=== PATIENT | male | born 1950 | race Caucasian/White ===

== ENCOUNTER 2022-01-11 14:25 | Emergency (ER) | payer MEDICARE, BC, SELFPAY ==
[2022-01-11 14:26] VITALS: BP 127/78; PULSE 114; RESP 44; TEMP 36.7; O2SAT 85; BMI 26.6
--- NOTE | 2022-01-11 14:29 | ECG_ITS ---
APPROVED REPORT Exam: Resting ECG HR:111 bpm ECG Measurements Heart Rate [address] 149 P 73 QRSd 92 QRS 72 QT 294 T 57 QTc 359 Conclusion SINUS TACHYCARDIA ABNORMAL RHYTHM ECG UNCONFIRMED REPORT Electronically signed by : Dagoberto Nesbitt MD 01/12/2022 22:18:04
--- NOTE | 2022-01-11 14:29 | XR_ITS ---
FINAL REPORT CLINICAL HISTORY: cough FINDINGS: A single portable view of the chest was obtained. The heart size and pulmonary vascularity are within normal limits. The mediastinum is within normal limits. There is left lung base opacity consistent with pneumonia. The bony thorax is intact. IMPRESSION: Findings consistent with left lung base pneumonia. Reviewed, Interpreted and Dictated by Andres Veronica III, MD Transcribed by Iza Abel Authenticated and [facility]
--- NOTE | 2022-01-11 14:30 | HMH.EDGENADL ---
ED Disposition Clinical Impression: COPD exacerbation, Tobacco use disorder Disposition: Left Against Medical Advice Condition on Discharge: Serious Prescriptions: Albuterol Sulfate [Albuterol Sulfate Hfa] 8.5 gm IH BID #1 each Transmission Status: Pending to [facility] predniSONE [Deltasone 20mg tablet] 40 mg PO DAILY 30 Days #60 tab Transmission Status: Pending to [facility] levoFLOXacin [Levofloxacin 750MG Tablet*] 750 mg PO DAILY #5 tab Transmission Status: Pending to [facility] Time of Disposition: 15:16 - Critical Care Critical Care Time: No Attestation: On , the high probability of a clinically significant, sudden or life threatening deterioration of the following system(s) required my full and direct attention, intervention and personal management. The time I documented below is in addition to time spent performing reported procedures but includes the following listed in this critical care notation. Medical Decision Making - Medical Records Medical records reviewed: Yes: I reviewed the patient's medical records. - Pritesh Inquiry Pt receiving controlled substance: No Vital Signs: 01/11/22 14:26 Temperature 98.1 F Temperature Source Oral Pulse Rate [Right Radial] 114 H Respiratory Rate 44 H Blood Pressure [Right Arm] 127/78 Blood Pressure Mean [Right Arm] 94 Blood Pressure Source [Right Arm] Automatic Cuff Blood Pressure Position [Right Arm] Sitting 02 Sat by Pulse Oximetry 85 L Oxygen Delivery Method Room Air - Lab Data Lab Results 01/11/22 14:35: WBC 19.8 H, RBC 4.39 L, Hgb 14.0 L, Hct 39.0 L, MCV 88.9, MCH 32.0 H, MCHC 36.0 H, RDW 13.0, Plt Count 262, MPV 8.1, Neut % (Auto) 86.4 H, Lymph % (Auto) 8.3 L, [place] % (Auto) 4.2, Eos % (Auto) 0.7, Baso % (Auto) 0.5, Neut # (Auto) 17.1 H, Lymph # (Auto) 1.7, [place] # (Auto) 0.8, Eos # (Auto) 0.1, Baso # (Auto) 0.1 Result diagrams: 01/11/22 14:35 Orders (Tests/Meds): ED MEDICATIONS Discontinued Medications Generic Name Dose Route Start Last Admin Trade Name Freq PRN Reason Stop Dose Admin Albuterol/Ipratropium 3 ml 01/11/22 14:29 Ipratropium/Albuterol 3 Ml Neb IH 01/11/22 14:30 ONCE ONE Methylprednisolone Sodium Succinate 125 mg 01/11/22 14:29 Methylprednisolone Sod Succ 125mg Vial IV 01/11/22 14:30 ONCE ONE ORDERS Category Date Time Status XR chest portable Stat Exams 01/11/22 14:29 Taken Complete Blood Count Auto Diff Stat Lab 01/11/22 14:35 Results Comprehensive Metabolic Panel Stat Lab 01/11/22 14:35 Received Lactic Acid Stat Lab 01/11/22 14:35 Received Procalcitonin Stat Lab 01/11/22 14:35 Received Rapid PCR Covid and Flu A/B Stat Lab 01/11/22 14:29 Ordered Troponin I Q3H Lab 01/11/22 17:30 Ordered Troponin I Q3H Lab 01/11/22 20:30 Ordered Troponin I Stat Lab 01/11/22 14:35 Received Blood Culture Stat Micro 01/11/22 14:35 Received Venous Blood Gas Stat RT 01/11/22 14:29 Ordered ECG Request by /[place] Stat Y 01/11/22 14:29 Ordered - ECG Data Tracing #1 Sinus tachycardia with ventricular rate of 111 bpm. QRS 92, QTc 359. No ST segment elevation. No arrhythmia. Medical Decision Narrative: In summary this is a 71-year-old male with history of tobacco use disorder and COPD presenting to the emergency department with cough, wheezing, difficulty breathing. Patient appears in moderate distress on arrival, significantly elevated respiratory rate. Oxygen saturation was in the mid 80s on room air. Placed on 3 L by nasal cannula. Pain CBC, CMP, VBG, chest x-ray, EKG, troponin profile. Patient given DuoNeb and 125 Solu-Medrol. Shortly after my evaluation, patient said he no longer wanted to be in the emergency department. He told nursing staff he was ready to leave. He wanted his IV out. [place] his breathing was much better. So far, we only have preliminary labs showing a leukocytosis of 19,000. Chest x-ray has been completed, no pneumothorax or
[2022-01-11 14:49] LABS: Basophils # 0.1 K/mm3 (0-0.2); Basophils % 0.5 % (0.1-2.0); Eosinophils # 0.1 K/mm3 (0.0-0.4); Eosinophils % 0.7 % (0.1-12.0); Lymphocytes # 1.7 K/mm3 (0.7-4.5); Lymphocytes % 8.3 % (10-50); Mean Corpuscular Volume 88.9 fl (80-94); Mean Platelet Volume 8.1 fl (7.4-10.4); Monocytes # 0.8 K/mm3 (0.1-1.0); Monocytes % 4.2 % (1.7-9.3); Neutrophils # 17.1 K/mm3 (1.8-7.8); Neutrophils % 86.4 % (37.0-80.0); Platelet Count 262 K/mm3 (142-424); Red Blood Count 4.39 M/mm3 (4.60-6.20); White Blood Count 19.8 K/mm3 (4.8-10.8)
[2022-01-11 14:51] LABS: MANUAL DIFFERENTIAL MANUAL DIFFERENTIAL (MANUAL DIFF)
[2022-01-11 15:03] LABS: Chloride 96 mmol/L (98-107); Potassium 3.8 mmoL/L (3.5-5.1); Sodium 131 mmol/L (136-145)
[2022-01-11 15:06] LABS: Alanine Aminotransferase 32 U/L (12-78); Albumin Level 3.8 g/dl (3.5-5.0); Alkaline Phosphatase 69 U/L (38-126); Anion Gap 10.8 mEq/L (5-15); Aspartate Amino Transferase 42 U/L (17-59); Bilirubin,Total 1.1 mg/dl (0.2-1.3); Blood Urea Nitrogen 64 mg/dl (9-20); Calcium 8.6 mg/dl (8.4-10.2); Carbon Dioxide 28 mmol/L (22.0-30.0); Creatinine Clearance Estimated 68 mL/min (50-200); Estimated Glomerular Filt Rate 60 ml/min (>60); GFR (African American) 72 ML/MIN (>60); Globulin 3.7 g/dL (1.3-3.2); Glucose 155 mg/dl (74-100); Total Protein,Serum 7.5 g/dl (6.3-8.2)
[2022-01-11 15:07] LABS: Lactic Acid 1.6 mmol/L (0.7-2.1)
[2022-01-11 15:11] LABS: Lymphocytes % 4 % (10-50); Monocytes % 3 % (2-9); Neutrophils % 93 % (42-76); Total Cells Counted 100
[2022-01-11 15:18] LABS: Platelet Estimate Normal; Spherocytes 4+
[2022-01-11 15:19] LABS: Troponin I < 0.01 ng/ml (0.00-0.034)
[2022-01-11 15:35] VITALS: BP 0/0; PULSE 0; RESP 0; TEMP -17.7; TEMP 0; O2SAT 0
[2022-01-11 15:47] LABS: Procalcitonin 0.792 ng/mL (0.0-2.0)
== END 2022-01-11 15:35 | disposition left against medical advice (07) ==
PROVIDERS: Emergency Provider Emergency Medicine
DX: Z53.29 Procedure and treatment not carried out because of patient's decision for other reasons (principal); J44.1 Chronic obstructive pulmonary disease with (acute) exacerbation; Z72.0 Tobacco use; Z88.0 Allergy status to penicillin
CPT/HCPCS: 71045; 80053; 83605; 84145; 84484; 85007; 85025; 87040; 93005; 99283

== ENCOUNTER 2022-10-08 12:09 | Emergency (ER) | payer MEDICARE, BC, SELFPAY ==
[2022-10-08 12:15] VITALS: BP 135/76; PULSE 92; RESP 16; O2SAT 97
--- NOTE | 2022-10-08 12:16 | HMH.EDGENADL ---
Discharge Plan Disposition Patient Disposition: Home, Self-Care Prescriptions Prescriptions: New doxycycline hyclate 100 mg capsule 100 mg PO BID 7 Days Qty: 14 0RF No Action prednisone 20 MG tablet 40 mg PO DAILY 30 Days Qty: 60 0RF levofloxacin 750 MG tablet 750 mg PO DAILY Qty: 5 0RF albuterol sulfate 8.5 GM HFA aerosol inhaler 8.5 gm IH BID Qty: 1 0RF Referrals Follow up/Referrals: Provider,Referral, MD [Primary Care Provider] - See instructions Activity Restrictions/Add. Instructions Additional Instructions/Restrictions: Please follow-up with urology if you continue to have difficulty retracting your foreskin. Also return to the emergency department with any inability to urinate. Please return to the emergency department with any fevers chills or systemic signs of illness. Please have your partners tested and treated for STIs as well. Clinical Impressions Clinical Impression: Urethritis Instructions Patient Instructions: DI for Urinary Tract Infection (UTI), DI for Urinary Tract Infection in Children Discharge ED Provider: Brigido Linares General Adult HPI General Chief complaint: Urogenital-Male Stated complaint: Genital irritation Time Seen by Provider: 10/08/22 12:16 History of Present Illness HPI narrative: Patient is a 72-year-old male today presenting with concerns for the clap states that he has had significant inflammation and erythema and purulent drainage from his penis since he had sex with a woman that he notices multiple sexual partners a month and a half ago. The timing of this is very similar. He states that he had chlamydia when he was a teenager but has not had it since that time. Denies any lesions to his penis is able to urinate normally. Denies any pain with defecation. Denies any fevers chills or other systemic symptoms of illness. Related Data Previous Rx's Medication Instructions Recorded albuterol sulfate 90 mcg/actuation 8.5 gm inhalation BID #1 ea 01/11/22 aerosol inhaler levofloxacin 750 mg tablet 750 mg PO DAILY COPD #5 tabs 01/11/22 prednisone 20 mg tablet 40 mg PO DAILY 30 days #60 tabs 01/11/22 doxycycline hyclate 100 mg capsule 100 mg PO BID 7 days #14 caps 10/08/22 Allergies Allergy/AdvReac Type Severity Reaction Status Date / Time Penicillins Allergy Verified 01/11/22 14:58 [facility] Disclaimer: The information contained in this section may have been updated after the patient was seen, as this information can be updated by other users. Social History Smoking Status: Current every day smoker alcohol intake: current current occupational status: other Travel in the last 8 weeks: None ROS Obtained: Yes All systems reviewed & no additional complaints except as documented Physical Exam General General appearance: alert and in no apparent distress Respiratory Respiratory exam: Present normal lung sounds bilaterally; Absent respiratory distress Cardiovascular Cardiovascular exam: Present regular rate; Absent tachycardia exam: Present other (Foreskin is not retracted there is some erythema and some purulent drainage from tip of his penis he is unable to fully retract his foreskin but is able to urinate) Neurological Exam Neurological exam: Present alert and oriented X3 Medical Decision Making Pritesh Inquiry Pt receiving controlled substance: No Pritesh was queried for this patient: No Vital Signs: 10/08/22 12:18 10/08/22 12:15 Temperature 97 F L Temperature Source Oral Pulse Rate 92 H Pulse Rate [Left] 97 H Respiratory Rate 16 16 Blood Pressure 135/76 Blood Pressure [Left Arm] 135/76 Blood Pressure Mean 100 Blood Pressure Mean [Left Arm] 95 02 Sat by Pulse Oximetry 96 97 Oxygen Delivery Method Room Air Room Air Lab Data Lab Results 10/08/22 12:25: Urine Color Dk yellow, Urine Appearance Clear, Urine pH 5.5, Ur Specific [place] >= 1.030, Urine Protein 1+, Urine Glucose (UA) Trace,
[2022-10-08 12:18] VITALS: BP 135/76; PULSE 97; RESP 16; TEMP 36.1; O2SAT 96; BMI 29.0
[2022-10-08 12:36] LABS: Microscopic, Urine URINE MICROSCOPIC (MICROSCOPIC)
[2022-10-08 12:36] LABS: POC Glucose,Bedside 94 (70-110)
--- NOTE | 2022-10-08 12:36 | PC.NURSE ---
Sam rounded on patient
[2022-10-08 12:39] LABS: Appearance,Urine CLEAR (Clear); Blood, Urine TRACE-I (Negative); Color,Urine DK YELLOW (Yellow); Glucose,Urine (UA) TRACE (Negative); Ketones,Urine Negative (Negative); Leukocyte Esterase,Urine TRACE (Negative); Nitrate,Urine POSITIVE (Negative); PH,Urine 5.5 (5.0-8.5); Protein,Urine 1+ (Negative); Specific Gravity, Urine >= 1.030 (1.005-1.030)
[2022-10-08 12:49] LABS: Bilirubin,Urine 2+ (Negative)
[2022-10-08 13:11] LABS: Bacteria,Urine 1+ /lpf; RBC,Urine Occasional #/hpf (0-3)
[2022-10-08 13:30] VITALS: BP 135/76; PULSE 97; RESP 16; TEMP 36.1; O2SAT 96
[2022-10-11 20:09] LABS: Neisseria gonorrhoeae, NAA Negative (Negative)
== END 2022-10-08 13:32 | disposition home or self-care (01) ==
PROVIDERS: Emergency Provider Student in an Organized Health Care Education/Training Program
DX: N34.1 Nonspecific urethritis (principal); Z11.3 Encounter for screening for infections with a predominantly sexual mode of transmission; F17.210 Nicotine dependence, cigarettes, uncomplicated
CPT/HCPCS: 81001; 82962; 87086; 87491; 87591; 96372; 99284; J0696

== ENCOUNTER 2022-12-16 19:55 | Emergency (ER) | payer MEDICARE, BC, SELFPAY ==
--- NOTE | 2022-12-16 19:53 | ECG_ITS ---
APPROVED REPORT Exam: Resting ECG HR:90 bpm ECG Measurements Heart Rate 90 AXES WV 158 P -52 QRSd 94 QRS 79 QT 345 T 78 QTc 393 Conclusion SINUS RHYTHM WITH OCCASIONAL SUPRAVENTRICULAR PREMATURE COMPLEXES BORDERLINE ECG UNCONFIRMED REPORT Electronically signed by : Dagoberto Nesbitt MD 12/18/2022 07:50:18
[2022-12-16 19:57] VITALS: BP 128/78; PULSE 89; RESP 18; TEMP 37.1; O2SAT 98; BMI 29.1
[2022-12-16 20:10] LABS: Basophils # 0.1 K/mm3 (0-0.2); Basophils % 0.4 % (0.1-2.0); Eosinophils # 0.1 K/mm3 (0.0-0.4); Eosinophils % 1.2 % (0.1-12.0); Hematocrit 48.5 % (42.0-52.0); Hemoglobin 15.6 g/dL (14.1-18.0); Lymphocytes # 1.6 K/mm3 (0.7-4.5); Lymphocytes % 13.9 % (10-50); Mean Corpuscular HGB Conc 32.1 g/dL (31.8-35.4); Mean Corpuscular Hemoglobin 31.1 pg (27.0-31.2); Mean Corpuscular Volume 96.7 fl (80-94); Mean Platelet Volume 7.8 fl (7.4-10.4); Monocytes # 0.5 K/mm3 (0.1-1.0); Monocytes % 4.5 % (1.7-9.3); Neutrophils # 9.3 K/mm3 (1.8-7.8); Platelet Count 295 K/mm3 (142-424); Red Blood Count 5.02 M/mm3 (4.60-6.20); Red Cell Distribution Width 14.6 % (11.5-17.5); White Blood Count 11.6 K/mm3 (4.8-10.8)
[2022-12-16 20:17] LABS: Chloride 94 mmol/L (98-107); Potassium 4.1 mmoL/L (3.5-5.1); Sodium 139 mmol/L (136-145)
[2022-12-16 20:19] LABS: Alanine Aminotransferase 26 U/L (12-78); Alkaline Phosphatase 122 U/L (38-126); Anion Gap 14.1 mEq/L (5-15); Aspartate Amino Transferase 36 U/L (17-59); Bilirubin,Total 1.1 mg/dl (0.2-1.3); Blood Urea Nitrogen 9 mg/dl (9-20); Carbon Dioxide 35 mmol/L (22.0-30.0); Creatinine Clearance Estimated 88 mL/min (50-200); Estimated Glomerular Filt Rate 74 ml/min (>60); GFR (African American) 89 ML/MIN (>60)
[2022-12-16 20:20] LABS: Albumin Level 3.9 g/dl (3.5-5.0); Albumin/Globulin Ratio 0.8 (1.1-1.8); Calcium 9.2 mg/dl (8.4-10.2); Globulin 5.2 g/dL (1.3-3.2); Glucose 129 mg/dl (74-100); Total Protein,Serum 9.1 g/dl (6.3-8.2)
--- NOTE | 2022-12-16 20:26 | PC.NURSE ---
Patient presented to the ED with c/o chest pain for the prior 2 days. Patient stated that over the last few hours his chest pain had moved from the right side of his chest into the left side of his chest. Denies any nausea. 18g IV was placed in patient right ac. EKG completed, no st elevation noted. Labs ordered, chest xray, and duoneb ordered as it was noted that patients oxygen saturation while nurse was entering his triage had dropped to 86% on room air. Patient was given a 04mg sublingual nitroglycerine tablet per protocol and was handed 4 baby aspirin. Patient was advised that after the nitro dissolved to chew the aspirin to the best of his ability. Patient said he wouldn't be able to gum or chew his pills. I told the patient I could give him a sip of water but he needed to wait until after his tests were resulted to drink water. I then advised patient that I was going to apply some oxygen since his 02 had dropped significantly. It was at this time that the patient stated you guys are doing too damn much and I'm leaving . I advised the patient repeatedly that it would be in his best interest to wait for his tests to results, get some treatment and medications if he needed them. Patient again said Im not going any of that, you'll suffocate me with that oxygen . I showed the patient the nasal cannula, advised how it would work. I told him that I was also going to give him a breathing treatment to help his breathing. At this time patient began to get out of bed to leave. I told the patient that he was free to leave and I would remove his IV and have him sign a form. Patient signed the ama form. IV was discontinued. Patient ambulated independently out of the ED.
[2022-12-16 20:27] VITALS: BP 136/77; PULSE 88; PULSE 90; RESP 22; TEMP 36.6; O2SAT 88
[2022-12-16 20:29] LABS: NT Pro Brain Natriuretic Pep. 155 pg/mL (0-125)
[2022-12-16 20:33] LABS: Troponin I < 0.01 ng/ml (0.00-0.034)
== END 2022-12-16 20:27 | disposition left against medical advice (07) ==
PROVIDERS: Emergency Provider Emergency Medicine
DX: I49.3 Ventricular premature depolarization (principal)
CPT/HCPCS: 80053; 83880; 84484; 85025; 93005; 99211; 99284

== ENCOUNTER 2024-08-25 21:59 | Observation (INO) | payer MEDICARE, MEDICAID, SELFPAY ==
[2024-08-25 22:00] VITALS: BP 163/85; PULSE 94; RESP 17; TEMP 37.1; O2SAT 94; BMI 26.5
[2024-08-25 22:30] VITALS: BP 163/85; PULSE 83; RESP 26; O2SAT 95
--- NOTE | 2024-08-25 23:02 | ECG_ITS ---
APPROVED REPORT Exam: Resting ECG HR:77 bpm ECG Measurements Heart Rate 77 AXES [place] 182 P 67 QRSd 90 QRS 73 QT 353 T 78 QTc 384 Conclusion SINUS RHYTHM NORMAL ECG Electronically signed by : STEPHENIE SPRAGUE, 08/26/2024 06:43:26
--- NOTE | 2024-08-25 23:02 | XR_ITS ---
PROCEDURE INFORMATION: Exam: XR Chest Exam date and time: 08/25/2024 11:04 PM Age: 74 years old Clinical indication: Shortness of breath; Additional info: Peripheral edema chronic SOA TECHNIQUE: Imaging protocol: Radiologic exam of the chest. Views: 2 views. COMPARISON: CR XR CHEST PORTABLE 01/11/2022 2:33 PM FINDINGS: Lungs: Unremarkable. No consolidation. Pleural spaces: Unremarkable. No pleural effusion. No pneumothorax. Heart/Mediastinum: Unremarkable. No cardiomegaly. Bones/joints: Unremarkable. IMPRESSION: No acute findings.
[2024-08-25 23:22] LABS: Basophils % 0.4 % (0.1-2.0); Eosinophils # 0.2 K/mm3 (0.0-0.4); Eosinophils % 1.7 % (0.1-12.0); Hematocrit 42.8 % (42.0-52.0); Hemoglobin 14.2 g/dL (14.1-18.0); Lymphocytes # 1.7 K/mm3 (0.7-4.5); Lymphocytes % 17.3 % (10-50); Mean Corpuscular HGB Conc 33.2 g/dL (31.8-35.4); Mean Corpuscular Hemoglobin 31.6 pg (27.0-31.2); Mean Corpuscular Volume 95.3 fl (80-94); Mean Platelet Volume 10.5 fl (7.4-10.4); Monocytes # 0.9 K/mm3 (0.1-1.0); Monocytes % 8.8 % (1.7-9.3); Neutrophils # 7.2 K/mm3 (1.8-7.8); Neutrophils % 71.4 % (37.0-80.0); Platelet Count 201 K/mm3 (142-424); Red Blood Count 4.49 M/mm3 (4.60-6.20); Red Cell Distribution Width 13.4 % (11.5-17.5)
[2024-08-25 23:29] LABS: Lactate Venous 1.5 mmol/L (0.4-2.0); VBG Base Excess 3.2 mmol/L (-2.4-2.3); VBG HCO3 27.4 mmol/L (23-30); VBG PCO2 41.4 mmol/L (35-51); VBG PH 7.44 mmol/L (7.31-7.41); VBG PO2 61.5 mmol/L (28-40); VBG Total CO2 28.6 mmol/L (23-27)
--- NOTE | 2024-08-25 23:30 | ED_ITS ---
Discharge Plan Disposition Patient Disposition: Admitted Condition: Fair Prescriptions Prescriptions: No Action No Known Home Medications Referrals Follow up/Referrals: Provider,Referral, [Primary Care Provider] - See instructions Clinical Impressions Clinical Impression: Congestive heart failure, Elevated brain natriuretic peptide (BNP) level, Edema, peripheral, Shortness of breath Print Language Print Language: Colombian Discharge ED Provider: Gigi Escobar [facility] General Chief Complaint: Shortness of Breath/Dyspnea Stated Complaint: SOA,swelling in legs and lungs hurt Time Seen by Provider: 08/25/24 22:58 Mode of Arrival: Ambulatory Source of Information: Patient Limitations: No Limitations Description of Symptoms (Recalled from ER Triage Doc. by RN): States he has knot on his right wrist that has been there for a week; denies any pain. He also reports that his feet and legs are swollen to his knees x days. He also reports SOA stating, I always can't breathe. He reports a hx of asthma and emphysema. He denies anyu home medications. He reports diarrhea x 2 days. Denies nausea, vomiting, or fever. Reports smoking 2PPD. History of Present Illness HPI narrative: 74-year-old male presents to the ER with concerns of swelling in his feet and legs that are worse for the last week. He reports he has a history of asthma and emphysema but does not take any home medications and states I do not go to the doctor . Patient reports no nausea, vomiting, fever, congestion, dizziness, or other associated symptoms. He states he has a knot on his right wrist that comes and goes but is not painful or red. He states he has had that not intermittently for years. He states it has been more swollen for the last week. Patient is a smoker. Denies other illicit substances. Related Data Home Medications ?Medication ?Instructions ?Recorded ?Confirmed No Known Home Medications 08/25/24 08/25/24 Allergies Allergy/AdvReac Type Severity Reaction Status Date / Time Penicillins Allergy Unknown Paralyzed Verified 08/26/24 01:23 [facility] Disclaimer: The information contained in this section may have been updated after the patient was seen, as this information can be updated by other users. Social History (Updated 10/08/22 @ 13:21 by Brigido Linares MD) Smoking Status: Current every day smoker alcohol intake: current current occupational status: other Travel in the last 8 weeks: None Have you lived/traveled outside US in past 30 days?: No Contact w/someone who lives/traveled outside US past 30 days?: No Exposure to someone with infectious disease in past 14 days?: No Do you have a fever (greater than 100.4 F or 38 C)?: No Have you tested positive for COVID-19: No Exposed to someone with COVID-19 in past 14 days?: No Do you have a sore throat?: No Do you have a cough?: No Do you have any weakness?: No Do you have any diarrhea?: No Are you experiencing any unusual bleeding?: No Do you have any muscle aches/pain?: No Do you have any abdominal pain?: No Are you experiencing loss of taste or smell?: No Other Medical History Have you received the Flu Vaccine for this season: No Have you received the Pneumonia Vaccine: No ROS Obtained: Yes Systems reviewed as appropriate & no additional complaints except as documented Per HPI Physical Exam General General appearance: alert and in no apparent distress Head Head exam: atraumatic and normocephalic Eye Eye exam: Present PERRL and EOMI ENT ENT exam: Present mucous membranes moist Neck Neck exam: Present normal inspection and full ROM Chest Chest inspection: Present symmetric chest wall rise Respiratory Respiratory exam: Absent normal lung sounds bilaterally (Rales in bilateral bases with diminished breath sounds throughout but saturating in the mid 90s on room air), respiratory distress, wheezes or stridor Cardiovascular Cardiovascular exam: Present regular rate and normal rhythm Abdominal Exam Abdominal exam: Present soft; Absent distention or tenderness Extremities Exam Extremities exam: Present full ROM, edema (+1 pitting edema bilateral lower extremities to the knees) and other (2+ pulses throughout); Absent tenderness Expanded Upper Extremity Exam Right: Forearm/Wrist exam: Present full ROM and other (2 cm diameter raised area over the radial aspect of the left wrist. No bruising or traumatic findings. Appears to be ganglion cyst; neurovascularly intact); Absent tenderness, swelling, laceration, deformity or erythema Neurological Exam Neurological exam: Present alert and oriented X3; Absent motor sensory deficit Psychiatric Psychiatric exam: Present normal affect and normal mood Skin Skin exam: Present warm and dry HEART Score HEART Score HEART Score assessment performed?: Yes History (anamnesis): Slightly suspicious ECG: Non-specific disturbance Age: >65 years Risk factors: 1-2 risk factors Troponin: </= normal limit HEART Score: 4 Procedures Miscellaneous Procedure Procedure Performed: Limited Cardiac Ultrasound Indication: Shortness of breath, leg swelling Identified cardiac views: [-Cardiac parasternal long axis] (extreme limited view secondary to body habitus) [-Cardiac parasternal short axis] (extremely limited view secondary to body habitus) [-Cardiac apical four-chamber] [-Cardiac subxiphoid] Findings: Cardiac activity present with, no pericardial effusion, no overt right heart strain, patient does appear to have mildly globally diminished left ventricular function without localizing wall motion abnormality Impression: Cardiac activity present with, no pericardial effusion, no overt right heart strain, patient does appear to have mildly globally diminished left ventricular function without localizing wall motion abnormality Images were saved to permanent archive The study was technically adequate within the limitations of patient's body habitus CPT: 11384 This study was performed by me, and I personally interpreted all images/videos. Based on my clinical judgement, these images were adequate and did not necessitate further imaging. Critical Care Critical Care Time Critical Care Time: No Medical Decision Making Medical Records Medical records reviewed: Yes I reviewed the patient's medical records. MR Comment: Patient was evaluated in our ER in September 2022. He was diagnosed with urethritis and prescribed doxycycline at that time. ECG similar to prior which I reviewed from 2022. Pritesh Inquiry Pt receiving controlled substance: No Vital Signs Vital Signs: 08/25/24 22:00 08/25/24 22:30 08/26/24 01:32 Temperature 98.8 F Temperature Source Oral Pulse Rate 83 80 Pulse Rate [Right Brachial] 94 H Respiratory Rate 17 26 H 17 Blood Pressure 163/85 H 144/81 H Blood Pressure [Right Arm] 163/85 H Blood Pressure Mean [Right Arm] 111 Blood Pressure Source [Right Arm] Automatic Cuff Blood Pressure Position [Right Arm] Sitting 02 Sat by Pulse Oximetry 94 L 95 93 L Oxygen Delivery Method Room Air 08/26/24 01:54 Temperature Temperature Source Pulse Rate 73 Pulse Rate [Right Brachial] Respiratory Rate 22 Blood Pressure 144/81 H Blood Pressure [Right Arm] Blood Pressure Mean [Right Arm] Blood Pressure Source [Right Arm] Blood Pressure Position [Right Arm] 02 Sat by Pulse Oximetry 96 Oxygen Delivery Method Room Air Lab Data Labs: Lab Results 08/25/24 23:02: VBG pH 7.44 H, VBG pCO2 41.4, VBG pO2 61.5 H, VBG HCO3 27.4, VBG Total CO2 28.6 H, VBG O2 Saturation 91.0 H, VBG Base Excess 3.2 H, VBG Lactic Acid 1.5 08/25/24 23:14: WBC 10.0, RBC 4.49 L, Hgb 14.2, Hct 42.8, MCV 95.3 H, MCH 31.6 H , MCHC 33.2, RDW 13.4, Plt Count 201, MPV 10.5 H, Neut % (Auto) 71.4, Lymph % (Auto) 17.3, Walsh % (Auto) 8.8, Eos % (Auto) 1.7, Baso % (Auto) 0.4, Neut # (Auto) 7.2, Lymph # (Auto) 1.7, Walsh # (Auto) 0.9, Eos # (Auto) 0.2, Baso # (Auto) 0.0, PT 11.0, INR 1.00, Sodium 140, Potassium 4.7, Chloride 102, Carbon Dioxide 30, Anion Gap 12.7, BUN 16, Creatinine 0.90, Estimated Creat Clear 78, Estimated GFR 83, Est GFR ( Amer) 100, Glucose 104 H, Calcium 8.8, Total Bilirubin 1.1, AST 51, ALT 36, Alkaline Phosphatase 64, Troponin I < 0.01, N T-Pro-B Natriuret Pep 189 H, Total Protein 7.2, Albumin 4.0, Globulin 3.2, Albumin/Globulin Ratio 1.3 08/25/24 23:14 08/25/24 23:14 Response Orders (Tests/Meds): ED MEDICATIONS Generic Name Dose Route Start Last Admin Trade Name Freq PRN Reason Stop Dose Admin Albuterol Sulfate 2 puff 08/26/24 01:23 08/26/24 01:47 Albuterol-Hfa 90mcg/Puff Inhaler 8gm IH 09/25/24 01:22 2 puff Q6HP PRN Administration Shortness Of Breath Discontinued Medications Generic Name Dose Route Start Last Admin Trade Name Freq PRN Reason Stop Dose Admin Furosemide 40 mg 08/26/24 01:23 08/26/24 01:28 Furosemide 40mg/4ml Vial IV 08/26/24 01:24 40 mg ONCE ONE Administration Miscellaneous 1 unit 08/26/24 01:23 08/26/24 01:48 Aerochamber/Optihaler MC 08/26/24 01:24 1 unit ONCE ONE Administration ORDERS Category Date Time Status CXR 2 view (NOT portable) [XR chest 2V] Stat Exams 08/25/24 23:02 Completed POCUS Point of Care (ER Only) Stat Exams 08/26/24 01:12 Ordered BNP [NT Pro Brain Natriuretic Pep.] Stat Lab 08/25/24 23:14 Completed CBC w/Auto Diff [Complete Blood Count Auto Diff] Stat Lab 08/25/24 23:14 Completed CMP [Comprehensive Metabolic Panel] Stat Lab 08/25/24 23:14 Completed PT INR [Prothrombin Time INR] Stat Lab 08/25/24 23:14 Completed Trop I [Troponin I] Stat Lab 08/25/24 23:14 Completed Troponin I Q3H Lab 08/26/24 02:15 Ordered Troponin I Q3H Lab 08/26/24 05:15 Ordered VBG [Venous Blood Gas] Stat RT 08/25/24 23:02 Completed ECG Request Stat Y 08/25/24 23:02 Ordered MDM Narrative Medical Decision Narrative: In summary, this 74-year-old male with comorbidities described in the HPI presents to the emergency department today with leg swelling and complaint of chronic shortness of breath which she reports is unchanged. On initial evaluation patient is hemodynamically stable, afebrile, he has peripheral edema and rales in the bilateral lung bases but is saturating well on room air at rest. Differential diagnosis includes but is not limited to ACS, fluid overload, I considered DVT however equal swelling in the bilateral lower extremities goes against this, I considered CHF, COPD, pneumonia. Patient also complained of an area of swelling on his right wrist. This appears to be a ganglion cyst which would be consistent with his history of having this intermittently better and worse for years and it not being painful. Based on these concerns, I ordered serum labs, cardiac workup. ECG personally interpreted demonstrates sinus rhythm, rate 77, normal axis, normal HI and QTc, no STEMI, similar to previous ECG. Initially patient did not receive any treatment in the ER. Labs personally reviewed demonstrate nonactionable CBC and CMP, initial troponin undetectably low less than 0.01, patient does have elevated BNP at 189. With this finding and patient's clinical findings of rales on pulmonary exam as well as peripheral edema, I am going to treat the patient for fluid overload and CHF with IV Lasix.. XR personally interpreted demonstrates no lobar infiltrate or overt pulmonary edema, see radiology read for final interpretation. I performed [id number] bedside ultrasound which does not demonstrate pericardial effusion or right heart strain, views were limited secondary to patient's body habitus, the left ventricle I believe has slightly depressed global function without obvious wall motion abnormality. I discussed admission versus outpatient management with the patient. He is not compliant and states he does not have a primary care doctor. He states in the past he has never followed up with anyone. Because he is high risk of being lost to follow-up but has evidence of CHF, I believe patient requires admission at this time due to his ongoing symptoms for continued diuresis and close management until he shows clinical signs of improvement. In discussion with the patient, he admits this is likely the best plan and states he is unlikely to follow-up outpatient. We had a discussion about him having to take responsibility for his own health, patient is somewhat cantankerous but does understand this. Since he is fluid overloaded and this is a new diagnosis of CHF, admission is warranted. Patient did request albuterol inhaler stating this has helped his breathing in the past. He does not have hypercarbia or significant abnormalities on VBG but I believe this is reasonable with his extensive tobacco use history and previous history of COPD exacerbations. I discussed this case with the hospitalist and after discussing patient's low likelihood of following up outpatient and high risk if he is lost to follow-up, the hospitalist graciously accepted the patient for admission.
[2024-08-25 23:35] LABS: Chloride 102 mmol/L (98-107); Potassium 4.7 mmoL/L (3.5-5.1); Sodium 140 mmol/L (136-145)
[2024-08-25 23:38] LABS: Alanine Aminotransferase 36 U/L (12-78); Albumin/Globulin Ratio 1.3 (1.1-1.8); Alkaline Phosphatase 64 U/L (38-126); Anion Gap 12.7 mEq/L (5-15); Aspartate Amino Transferase 51 U/L (17-59); Bilirubin,Total 1.1 mg/dl (0.2-1.3); Blood Urea Nitrogen 16 mg/dl (9-20); Calcium 8.8 mg/dl (8.4-10.2); Carbon Dioxide 30 mmol/L (22.0-30.0); Creatinine Clearance Estimated 78 mL/min (50-200); Estimated Glomerular Filt Rate 83 ml/min (>60); GFR (African American) 100 ML/MIN (>60); Globulin 3.2 g/dL (1.3-3.2); Glucose 104 mg/dl (74-100); Total Protein,Serum 7.2 g/dl (6.3-8.2)
[2024-08-25 23:47] LABS: NT Pro Brain Natriuretic Pep. 189 pg/mL (0-125)
[2024-08-26] VITALS (7 sets, daily range): BP systolic 128–146; BP diastolic 62–81; PULSE 73–88; RESP 17–22; TEMP 36.4–36.7; O2SAT 93–96; BMI 29.9
[2024-08-26 00:04] LABS: Troponin I < 0.01 ng/ml (0.00-0.034)
[2024-08-26] MEDS: FUROSEMIDE 40MG/4ML VIAL 40 MG IV ×2 (01:28→04:26)
[2024-08-26] MEDS: ALBUTEROL-HFA 90MCG/PUFF INHALER 8GM 2 PUFF IH (01:47)
[2024-08-26] MEDS: AEROCHAMBER/OPTIHALER 1 UNIT MC (01:48)
--- NOTE | 2024-08-26 02:39 | PC.NURSE ---
pt arrived to floor at this time
[2024-08-26 03:02] LABS: Troponin I < 0.01 ng/ml (0.00-0.034)
--- NOTE | 2024-08-26 04:12 | P.HP_ITS ---
History of Present Illness *Admission Date: 08/26/24 *Reason for visit:: Shortness of breath *History of present illness: A 74-year-old male presents to the emergency department with complaints of bilateral lower extremity swelling that has worsened over the past week. He reports a history of asthma and emphysema but denies taking any home medications, stating, I do not go to the doctor. The patient denies associated symptoms such as nausea, vomiting, fever, congestion, dizziness, or chest pain. He denies any prior similar episodes. The patient reports chronic shortness of breath, which he states is unchanged from baseline. He denies any significant weight gain or decreased urine output. The patient has a significant smoking history of two packs per day and denies any illicit substance use. On arrival, the patient was hemodynamically stable and afebrile. Physical exam revealed significant 3+ bilateral lower extremity edema and rales in the bilateral lung bases with expiratory wheezes. He was saturating well on room air at rest. [id number] ultrasound revealed slightly depressed global left ventricular function without evidence of right heart strain or pericardial effusion. A chest X-ray showed no lobar infiltrates or overt pulmonary edema. Lab results included an elevated NT-pro-BNP of 189 pg/mL, with normal troponin levels (<0.01), unremarkable CBC and CMP, and no evidence of infection. The patient has no primary care provider and admits to noncompliance with prior medical recommendations. Due to his clinical findings of peripheral edema, rales, and slightly depressed left ventricular function, the presentation is consistent with fluid overload and congestive heart failure. After discussion with the patient, admission for diuresis and continued monitoring was agreed upon. [facility] Disclaimer: The information contained in this section may have been updated after the patient was seen, as this information can be updated by other users. Medical History No significant past medical history Family History Other Asthma Social History Smoking Status: Current every day smoker alcohol intake: never current occupational status: disabled and other Travel in the last 8 weeks: None Have you lived/traveled outside [place] in past 30 days?: No Contact w/someone who lives/traveled outside US past 30 days?: No Exposure to someone with infectious disease in past 14 days?: No Do you have a fever (greater than 100.4 F or 38 C)?: No Have you tested positive for COVID-19: No Exposed to someone with COVID-19 in past 14 days?: No Do you have a sore throat?: No Do you have a cough?: No Do you have any weakness?: No Are you experiencing any nausea/vomitting?: No Do you have any diarrhea?: No Are you experiencing any unusual bleeding?: No Do you have any muscle aches/pain?: No Do you have any abdominal pain?: No Are you experiencing loss of taste or smell?: No Other Medical History Have you received the Flu Vaccine for this season: No Have you received the Pneumonia Vaccine: No Review of Systems Review of Systems Review of systems (narrative): 14 point review of systems negative outside [facility] Meds Home Medications and Allergies Home Medications ?Medication ?Instructions ?Recorded ?Confirmed ?Type albuterol sulfate 90 mcg/actuation 2 puff inhalation Q6HP PRN 08/26/24 Rx aerosol inhaler (Ventolin HFA) Shortness Of Breath #0 grams doxycycline hyclate 100 mg capsule 100 mg PO BID #10 caps 08/26/24 Rx fluticasone fur. 100 mcg-umeclid 1 inh inhalation DAILY #0 ea 08/26/24 Rx 62.5 mcg-vilant 25 mcg inhalat.powder (Trelegy Ellipta) furosemide 40 mg tablet (Lasix) 40 mg PO DAILY #14 tabs 08/26/24 Rx prednisone 20 mg tablet 40 mg (2 x 20 mg) PO DAILY 5 days 08/26/24 Rx #10 tabs New Prescriptions to Start Prescriptions: doxycycline hyclate Reynaldo Patel furosemide [Lasix] Reynaldo Patel prednisone Reynaldo Patel Allergies Allergy/AdvReac Type Severity Reaction Status Date / Time Penicillins Allergy Unknown Paralyzed Verified 08/26/24 01:23 Exam Data for Last 24 hours Vital signs and Labs for Last 24 Hours: Temp Pulse Resp BP Pulse Ox O2 Del Method O2 Flow Rate 97.9 F 88 18 128/70 95 Nasal Cannula 2 08/26/24 02:40 08/26/24 02:40 08/26/24 02:40 08/26/24 02:40 08/26/24 02:48 08/26/24 02:48 08/26/24 02:48 Laboratory Results - last 24 hr 08/25/24 23:02: VBG pH 7.44 H, VBG pCO2 41.4, VBG pO2 61.5 H, VBG HCO3 27.4, VBG Total CO2 28.6 H, VBG O2 Saturation 91.0 H, VBG Base Excess 3.2 H, VBG Lactic Acid 1.5 08/25/24 23:14: WBC 10.0, RBC 4.49 L, Hgb 14.2, Hct 42.8, MCV 95.3 H, MCH 31.6 H , MCHC 33.2, RDW 13.4, Plt Count 201, MPV 10.5 H, Neut % (Auto) 71.4, Lymph % (Auto) 17.3, Whitfield % (Auto) 8.8, Eos % (Auto) 1.7, Baso % (Auto) 0.4, Neut # (Auto) 7.2, Lymph # (Auto) 1.7, Whitfield # (Auto) 0.9, Eos # (Auto) 0.2, Baso # (Aut o) 0.0, PT 11.0, INR 1.00, Sodium 140, Potassium 4.7, Chloride 102, Carbon Dioxide 30, Anion Gap 12.7, BUN 16, Creatinine 0.90, Estimated Creat Clear 78, Estimated GFR 83, Est GFR ( Amer) 100, Glucose 104 H, Calcium 8.8, Total Bilirubin 1.1, AST 51, ALT 36, Alkaline Phosphatase 64, Troponin I < 0.01, NT-Pro-B Natriuret Pep 189 H, Total Protein 7.2, Albumin 4.0, Globulin 3.2, Albumin/Globulin Ratio 1.3 08/26/24 02:29: Troponin I < 0.01 I & O for Last 24 hours: Intake & Output 08/23/24 08/24/24 08/25/24 08/26/24 23:59 23:59 23:59 23:59 Output Total 0 / 0 Balance 0 / 0 Weight 83.915 kg 95.254 kg Constitutional Constitutional: no acute distress and chronically ill appearing *Routine HEENT Exam Head: Present normocephalic Eye: Present EOMI and PERRL ENT: Present mucous membranes moist *Routine Neck Exam Neck: Present supple; Absent lymphadenopathy *Routine Respiratory Exam Respiratory: Present prolonged expiratory phase, rales and wheezes *Routine Cardiovascular Exam Cardiovascular: Present RRR, Normal S1 and Normal S2 *Routine Abdominal Exam Abdominal: Present soft and normoactive bowel sounds; Absent tenderness *Routine Rectal Exam Rectal:: deferred *Routine Genitalia Exam Genitalia:: deferred *Routine Extremities Exam Extremities: Present edema and pulses intact; Absent cyanosis or clubbing *Routine Skin Exam Skin: Present warm; Absent rash *Routine Neurological Exam Neurological: Present alert and oriented X3 Assessment and Plan *Assessment and plan (1) Shortness of breath: Status: Acute Category: Medical Code(s): R06.02 - Shortness of breath (2) Edema, peripheral: Status: Acute Category: Medical Code(s): R60.0 - Localized edema (3) Elevated brain natriuretic peptide (BNP) level: Status: Acute Category: Medical Code(s): R79.89 - Other specified abnormal findings of blood chemistry (4) Congestive heart failure: Status: Acute Category: Medical Code(s): I50.9 - Heart failure, unspecified (5) Tobacco use disorder: Status: Acute Category: Medical Code(s): F17.200 - Nicotine dependence, unspecified, uncomplicated (6) COPD exacerbation: Status: Acute Category: Medical Code(s): J44.1 - Chronic obstructive pulmonary disease with (acute) exacerbation Plan Medical Decision Making: This 74-year-old male with a history of asthma, emphysema, and significant tobacco use presents with worsening bilateral lower extremity swelling over the past week. The patient reports chronic shortness of breath, unchanged from baseline, and denies symptoms such as fever, chest pain, or other associated findings. On examination, he has bilateral peripheral edema and rales at the lung bases, suggesting fluid overload. Elevated NT-pro-BNP of 189 pg/mL supports a diagnosis of congestive heart failure (CHF). Chest X-ray revealed no lobar infiltrates or overt pulmonary edema. [id number] ultrasound findings indicate slightly depressed global left ventricular function, consistent with early CHF. The patient is noncompliant, lacks a primary care provider, and has a history of not following up. These factors increase the risk of decompensation if discharged. Admission is warranted for IV diuresis, cardiac monitoring, and continued evaluation and management of his CHF. Assessment and Plan 1. Congestive Heart Failure - Fluid Overload (ICD-10: I50.9): * Admit for inpatient management and monitoring. * Repeat IV furosemide 40 mg for diuresis, with dose titration based on urine output and clinical response. * Monitor electrolytes, renal function, and daily weights to assess diuresis and adjust therapy as needed. * Electrolyte replacement protocol * Encourage smoking cessation, as continued smoking exacerbates heart and lung disease. Provide nicotine replacement therapy * Consult cardiology for evaluation of left ventricular function and optimization of long-term CHF management. * Educate the patient on CHF symptoms, the importance of adherence to treatment, and risk factor modification. * Monitor intake and output, daily weights 2. Chronic Obstructive Pulmonary Disease (ICD-10: J44.9): * Assess for signs of exacerbation during hospitalization * Provide as-needed albuterol nebulization therapy if symptoms of bronchospasm develop. * Continue to monitor oxygen saturation and maintain on room air unless hypoxemia develops. * Refer for pulmonary follow-up post-discharge to address ongoing management and smoking cessation strategies. 3. Peripheral Edema (ICD-10: R60.0): * Likely secondary to fluid overload from CHF. Treat with IV diuresis as described above. * Continue monitoring for resolution of edema with clinical improvement. 4. Noncompliance and Lack of Primary Care (ICD-10: Z91.19): * Arrange social work consultation to discuss barriers to care and identify potential resources for follow-up and medication access. * Address patient?s noncompliance by emphasizing the importance of adhering to treatment and follow-up appointments to prevent worsening health outcomes. * Provide education on the significance of CHF management and lifestyle modifications. Follow-up: GI prophylaxis. Protonix VTE prophylaxis subcu Lovenox Rounded on patient after nurse practitioner. Personally examined and interviewed patient. Agree with exam findings and care plan as documented.
[2024-08-26] MEDS: IPRATROPIUM/ALBUTEROL 3 ML NEB IH (04:25)
[2024-08-26] MEDS: NICOTINE 21MG/24HR PATCH 21 MG TD (04:26)
[2024-08-26 05:02] LABS: Adenovirus,PCR Not Detected (NotDetected); Bordetella Pertussis Not Detected (NotDetected); Chlamydophila Pneumoniae, PCR Not Detected (NotDetected); Coronavirus 19, PCR Not Detected (NotDetected); Coronavirus 229E Not Detected (NotDetected); Coronavirus NL63 Not Detected (NotDetected); Coronavirus OC43 Not Detected (NotDetected); Coronovirus HKU1,PCR Not Detected (NotDetected); Human Metapneumovirus Not Detected (NotDetected); Influenza A, PCR Not Detected (NotDetected); Influenza AH1, 2009 Not Detected (NotDetected); Influenza AH1, PCR Not Detected (NotDetected); Influenza AH3,PCR Not Detected (NotDetected); Influenza B, PCR Not Detected (NotDetected); Mycoplasma Pneumoniae, PCR Not Detected (NotDetected); Parainfluenza 1, PCR Not Detected (NotDetected); Parainfluenza 2, PCR Not Detected (NotDetected); Parainfluenza 3, PCR Not Detected (NotDetected); Parainfluenza 4, PCR Not Detected (NotDetected); Respiratory Syncytial Virus Not Detected (NotDetected); Rhinovirus/Enterovirus Not Detected (NotDetected)
--- NOTE | 2024-08-26 05:32 | PC.NURSE ---
Pt admitted this am with CHF. Pt has no complaints upon arrival to 2nd floor. Pt A&OX4. +4 pitting edema noted on BLE. Pt given meds per MAR. Pt placed on 2L NC, wheezes noted, duoneb given. Pt voiding per urinal for accurate urinary output measurement.
[2024-08-26 08:36] LABS: Basophils % 0.3 % (0.1-2.0); Chloride 97 mmol/L (98-107); Eosinophils # 0.1 K/mm3 (0.0-0.4); Eosinophils % 1.6 % (0.1-12.0); Hematocrit 42.7 % (42.0-52.0); Lymphocytes # 1.4 K/mm3 (0.7-4.5); Lymphocytes % 15.1 % (10-50); Mean Corpuscular HGB Conc 32.8 g/dL (31.8-35.4); Mean Corpuscular Hemoglobin 31.7 pg (27.0-31.2); Mean Corpuscular Volume 96.6 fl (80-94); Mean Platelet Volume 9.7 fl (7.4-10.4); Monocytes # 0.8 K/mm3 (0.1-1.0); Monocytes % 8.7 % (1.7-9.3); Neutrophils # 6.7 K/mm3 (1.8-7.8); Neutrophils % 73.7 % (37.0-80.0); Platelet Count 187 K/mm3 (142-424); Red Blood Count 4.42 M/mm3 (4.60-6.20); Red Cell Distribution Width 13.2 % (11.5-17.5)
[2024-08-26 08:37] LABS: Potassium 3.8 mmoL/L (3.5-5.1); Sodium 139 mmol/L (136-145)
[2024-08-26 08:38] LABS: INR 1.02 (0.9-1.1); Prothrombin Time 11.2 seconds (9.2-12.1)
[2024-08-26 08:39] LABS: Blood Urea Nitrogen 17 mg/dl (9-20); Creatinine Clearance Estimated 73 mL/min (50-200); Estimated Glomerular Filt Rate 59 ml/min (>60); GFR (African American) 72 ML/MIN (>60)
[2024-08-26 08:40] LABS: Anion Gap 9.8 mEq/L (5-15); Calcium 8.8 mg/dl (8.4-10.2); Carbon Dioxide 36 mmol/L (22.0-30.0); Chol/HDL Ratio 2.3 (1-3.5); Cholesterol 115 mg/dl (140-200); Glucose 187 mg/dl (74-100); HDL Cholesterol 51 mg/dl (40-60); Magnesium 1.6 mg/dl (1.6-2.3); Phosphorous 4.1 mg/dl (2.5-4.5); Triglycerides 37 mg/dl (30-150); VLDL Cholesterol 7 mg/dL (0-40)
[2024-08-26 08:51] LABS: Direct LDL Cholesterol 33.26 mg/dL (100-129)
[2024-08-26 08:55] LABS: Troponin I < 0.01 ng/ml (0.00-0.034)
[2024-08-26] MEDS: FUROSEMIDE 20 MG/2 ML VIAL IV (09:12)
--- NOTE | 2024-08-26 11:38 | EXP.DC.SUM ---
General Admission date:: 08/26/24 Discharge date: 08/26/24 HPI HPI HPI: A 74-year-old male presents to the emergency department with complaints of bilateral lower extremity swelling that has worsened over the past week. He reports a history of asthma and emphysema but denies taking any home medications, stating, I do not go to the doctor. The patient denies associated symptoms such as nausea, vomiting, fever, congestion, dizziness, or chest pain. He denies any prior similar episodes. The patient reports chronic shortness of breath, which he states is unchanged from baseline. He denies any significant weight gain or decreased urine output. The patient has a significant smoking history of two packs per day and denies any illicit substance use. On arrival, the patient was hemodynamically stable and afebrile. Physical exam revealed significant 3+ bilateral lower extremity edema and rales in the bilateral lung bases with expiratory wheezes. He was saturating well on room air at rest. [id number] ultrasound revealed slightly depressed global left ventricular function without evidence of right heart strain or pericardial effusion. A chest X-ray showed no lobar infiltrates or overt pulmonary edema. Lab results included an elevated NT-pro-BNP of 189 pg/mL, with normal troponin levels (<0.01), unremarkable CBC and CMP, and no evidence of infection. The patient has no primary care provider and admits to noncompliance with prior medical recommendations. Due to his clinical findings of peripheral edema, rales, and slightly depressed left ventricular function, the presentation is consistent with fluid overload and congestive heart failure. After discussion with the patient, admission for diuresis and continued monitoring was agreed upon. Hospital Course Hospital Course Hospital Course: This 74-year-old male with a history of asthma, emphysema, and significant tobacco use presents with worsening bilateral lower extremity swelling over the past week. The patient reports chronic shortness of breath, unchanged from baseline, and denies symptoms such as fever, chest pain, or other associated findings. On examination, he has bilateral peripheral edema and rales at the lung bases, suggesting fluid overload. Elevated NT-pro-BNP of 189 pg/mL supports a diagnosis of congestive heart failure (CHF). Chest X-ray revealed no lobar infiltrates or overt pulmonary edema. [id number] ultrasound findings indicate slightly depressed global left ventricular function, consistent with early CHF. The patient is noncompliant, lacks a primary care provider, and has a history of not following up. These factors increase the risk of decompensation if discharged. Admission is warranted for IV diuresis, cardiac monitoring, and continued evaluation and management of his CHF. Patient was adamant later in the day after feeling better with diuresis that he was going to go home. Had extensive discussion about his medical needs. Discussed further workup including echo. He did not want to stay admitted for further care. Came to an agreeable plan to avoid patient directed discharge. Patient needs close follow-up and further management as an outpatient to workup concerning for CHF and COPD. Would benefit from echo and PFTs. Not agreeable to staying in the hospital at this time however. Has improved to be stable on room air with sats in the low 90s. Tolerating oral nutrition and oral medications. Discharged with close follow-up plan and referred to primary care locally for further care. Problems addressed as follows: Suspected new diagnosis of CHF. Volume overload Peripheral edema Hypertension -Presented with concern for volume overload clinically. BNP only elevated at 189 however. Had significant lower extremity edema. Responded well to diuretics, was negative since admission of approximately a liter due to some unmeasured voids. Breathing better. Initially on 2 L but weaned to room air very quickly after diuresis. Patient denies any chest pain or palpitations. Recommend continuing diuretic at this time as he still has some lower extremity edema. Initiated on Lasix 40 mg daily. Would benefit from repeat labs at follow-up to evaluate electrolytes, specifically magnesium and potassium. Magnesium 1.6 on morning of discharge and potassium 3.8. Would also benefit from outpatient echo and potentially cardiology referral. Given patient's smoking history, high concern for CAD and likely diastolic dysfunction as clinically he appears to have significant COPD. Counseled on need to return to the hospital/ER if develops chest pain, worsening shortness of breath, weakness or fatigue. Suspected COPD Tobacco use disorder -Patient smokes 2+ packs a day and has for over 50 years. No desire to quit smoking at this time. Exam and presentation consistent with COPD exacerbation. Weaned from oxygen on admission to room air with sats maintaining in the low 90s even with ambulation. Will continue treatment for suspected COPD exacerbation with doxycycline 100 mg twice daily for 5 days and prednisone 40 mg daily for 5 days. Initiated on Trelegy 100 inhaler for maintenance therapy, inhaler provided prior to discharge. Initiated on albuterol inhaler with spacer for symptomatic dyspnea/wheeze. Inhaler provided prior to discharge. Would benefit from outpatient PFTs. Would benefit from further counseling on smoking cessation. Counseled on likelihood that respiratory symptoms will worsen/progress as long as he continues to smoke. Patient has been poorly compliant in the past and does not follow regularly with physicians. Strongly encouraged to start to keep regular appointments as he is developing health conditions that have the potential to be life limiting and increased morbidity and mortality. There are treatments to help manage these conditions however they will necessitate regular follow-ups with outpatient providers. Sister at bedside states understanding. Total time spent on discharge 32 minutes in counseling, documentation, chart review, and direct care with patient. Patient discharged same day of admission however. Exam Data for Last 24 hours Vital signs and Labs for Last 24 Hours: Temp Pulse Resp BP Pulse Ox O2 Del Method O2 Flow Rate 98.1 F 88 20 138/71 93 L Nasal Cannula 2 08/26/24 08:00 08/26/24 08:00 08/26/24 08:00 08/26/24 08:00 08/26/24 08:00 08/26/24 09:00 08/26/24 09:00 Laboratory Results - last 24 hr 08/25/24 23:02: VBG pH 7.44 H, VBG pCO2 41.4, VBG pO2 61.5 H, VBG HCO3 27.4, VBG Total CO2 28.6 H, VBG O2 Saturation 91.0 H, VBG Base Excess 3.2 H, VBG Lactic Acid 1.5 08/25/24 23:14: WBC 10.0, RBC 4.49 L, Hgb 14.2, Hct 42.8, MCV 95.3 H, MCH 31.6 H, MCHC 33.2, RDW 13.4, Plt Count 201, MPV 10.5 H, Neut % (Auto) 71.4, Lymph % (Auto) 17.3, Simpson % (Auto) 8.8, Eos % (Auto) 1.7, Baso % (Auto) 0.4, Neut # (Auto) 7.2, Lymph # (Auto) 1.7, Simpson # (Auto) 0.9, Eos # (Auto) 0.2, Baso # (Auto) 0.0, PT 11.0, INR 1.00, Sodium 140, Potassium 4.7, Chloride 102, Carbon Dioxide 30, Anion Gap 12.7, BUN 16, Creatinine 0.90, Estimated Creat Clear 78, Estimated GFR 83, Est GFR ( Amer) 100, Glucose 104 H, Calcium 8.8, Total Bilirubin 1.1, AST 51, ALT 36, Alkaline Phosphatase 64, Troponin I < 0.01, NT-Pro-B Natriuret Pep 189 H, Total Protein 7.2, Albumin 4.0, Globulin 3.2, Albumin/Globulin Ratio 1.3 08/26/24 02:29: Troponin I < 0.01 08/26/24 04:13: Chlamy pneumoniae PCR Not detected, Adenovirus (PCR) Not detected, B. pertussis DNA (PCR) Not detected, Coronavirus OC43 (PCR) Not detected, Coronavirus HKU1 (PCR) Not detected, Coronavirus 229E (PCR) Not detected, SARS-CoV-2 (PCR) Not detected, Coronavirus NL63 (PCR) Not detected, Human Metapneumovir PCR Not detected, Influenza A (H1) PCR Not detected, Influ A (H1N1/09) PCR Not detected, Influenza A (H3) PCR Not detected, Influenza Type A (PCR) Not detected, Influenza Type B (PCR) Not detected, M. pneumoniae (PCR) Not detected, Parainfluenza 1 (PCR) Not detected, Parainfluenza 2 (PCR) Not detected, Parainfluenza 3 (PCR) Not detected, Parainfluenza 4 (PCR) Not detected, RSV (PCR) Not detected, Entero/Rhino (PCR) Not detected 08/26/24 08:20: WBC 9.0, RBC 4.42 L, Hgb 14.0 L, Hct 42.7, MCV 96.6 H, MCH 31.7 H, MCHC 32.8, RDW 13.2, Plt Count 187, MPV 9.7, Neut % (Auto) 73.7, Lymph % (Auto) 15.1, Simpson % (Auto) 8.7, Eos % (Auto) 1.6, Baso % (Auto) 0.3, Neut # (Auto) 6.7, Lymph # (Auto) 1.4, Simpson # (Auto) 0.8, Eos # (Auto) 0.1, Baso # (Auto) 0.0, PT 11.2, INR 1.02, Sodium 139, Potassium 3.8, Chloride 97 L, Carbon Dioxide 36 H, Anion Gap 9.8, BUN 17, Creatinine 1.20 D, Estimated Creat Clear 73, Estimated GFR 59, Est GFR ( Amer) 72 D, Glucose 187 H D, Calcium 8.8, Phosphorus 4.1, Magnesium 1.6, Troponin I < 0.01, Triglycerides 37, Cholesterol 115 L, LDL Cholesterol Direct 33.26 L, VLDL Cholesterol 7, HDL Cholesterol 51, Cholesterol/HDL Ratio 2.3 I & O for Last 24 hours: Intake & Output 08/23/24 08/24/24 08/25/24 08/26/24 23:59 23:59 23:59 23:59 Intake Total 360 / 360 Output Total 1500 / 1500 Balance -1140 / -1140 Weight 83.915 kg 94.755 kg Constitutional Constitutional: no acute distress, obese, chronically ill appearing and cooperative *Routine HEENT Exam Head: Present normocephalic Eye: Present EOMI and PERRL ENT: Present mucous membranes moist *Routine Neck Exam Neck: Present supple; Absent lymphadenopathy *Routine Respiratory Exam Respiratory: Present prolonged expiratory phase and wheezes; Absent rhonchi or crackles *Routine Cardiovascular Exam Cardiovascular: Present RRR *Routine Abdominal Exam Abdominal: Present soft, normoactive bowel sounds and distended (soft); Absent tenderness *Routine Rectal Exam Patient deferred: visual exam *Routine Exam Patient deferred: penile exam *Routine Extremities Exam Extremities: Present edema (2+ to knees, improved); Absent cyanosis or clubbing *Routine Skin Exam Skin: Present intact and warm; Absent rash Comments: stasis changes in BLE *Routine Neurological Exam Neurological: Present alert, oriented X3 and moving all extremities; Absent altered mental status Results Data Completed and Pending Labs on day of discharge: Labs from last 24 hours 08/26/24 08/26/24 08/26/24 08:20 04:13 02:29 WBC 9.0 RBC 4.42 L Hgb 14.0 L Hct 42.7 MCV 96.6 H MCH 31.7 H MCHC 32.8 RDW 13.2 Plt Count 187 MPV 9.7 Neut % (Auto) 73.7 Lymph % (Auto) 15.1 Simpson % (Auto) 8.7 Eos % (Auto) 1.6 Baso % (Auto) 0.3 Neut # (Auto) 6.7 Lymph # (Auto) 1.4 Simpson # (Auto) 0.8 Eos # (Auto) 0.1 Baso # (Auto) 0.0 PT 11.2 INR 1.02 VBG pH VBG pCO2 VBG pO2 VBG HCO3 VBG Total CO2 VBG O2 Saturation VBG Base Excess VBG Lactic Acid Sodium 139 Potassium 3.8 Chloride 97 L Carbon Dioxide 36 H Anion Gap 9.8 BUN 17 Creatinine 1.20 D Estimated Creat Clear 73 Estimated GFR 59 Est GFR ( Amer) 72 D Glucose 187 H D Calcium 8.8 Phosphorus 4.1 Magnesium 1.6 Total Bilirubin AST ALT Alkaline Phosphatase Troponin I < 0.01 < 0.01 NT-Pro-B Natriuret Pep Total Protein Albumin Globulin Albumin/Globulin Ratio Triglycerides 37 Cholesterol 115 L LDL Cholesterol Direct 33.26 L VLDL Cholesterol 7 HDL Cholesterol 51 Cholesterol/HDL Ratio 2.3 Chlamy pneumoniae PCR Not detected Adenovirus (PCR) Not detected B. pertussis DNA (PCR) Not detected Coronavirus OC43 (PCR) Not detected Coronavirus HKU1 (PCR) Not detected Coronavirus 229E (PCR) Not detected SARS-CoV-2 (PCR) Not detected Coronavirus NL63 (PCR) Not detected Human Metapneumovir PCR Not detected Influenza A (H1) PCR Not detected Influ A (H1N1/09) PCR Not detected Influenza A (H3) PCR Not detected Influenza Type A (PCR) Not detected Influenza Type B (PCR) Not detected M. pneumoniae (PCR) Not detected Parainfluenza 1 (PCR) Not detected Parainfluenza 2 (PCR) Not detected Parainfluenza 3 (PCR) Not detected Parainfluenza 4 (PCR) Not detected RSV (PCR) Not detected Entero/Rhino (PCR) Not detected 08/25/24 08/25/24 23:14 23:02 WBC 10.0 RBC 4.49 L Hgb 14.2 Hct 42.8 MCV 95.3 H MCH 31.6 H MCHC 33.2 RDW 13.4 Plt Count 201 MPV 10.5 H Neut % (Auto) 71.4 Lymph % (Auto) 17.3 Simpson % (Auto) 8.8 Eos % (Auto) 1.7 Baso % (Auto) 0.4 Neut # (Auto) 7.2 Lymph # (Auto) 1.7 Simpson # (Auto) 0.9 Eos # (Auto) 0.2 Baso # (Auto) 0.0 PT 11.0 INR 1.00 VBG pH 7.44 H VBG pCO2 41.4 VBG pO2 61.5 H VBG HCO3 27.4 VBG Total CO2 28.6 H VBG O2 Saturation 91.0 H VBG Base Excess 3.2 H VBG Lactic Acid 1.5 Sodium 140 Potassium 4.7 Chloride 102 Carbon Dioxide 30 Anion Gap 12.7 BUN 16 Creatinine 0.90 Estimated Creat Clear 78 Estimated GFR 83 Est GFR ( Amer) 100 Glucose 104 H Calcium 8.8 Phosphorus Magnesium Total Bilirubin 1.1 AST 51 ALT 36 Alkaline Phosphatase 64 Troponin I < 0.01 NT-Pro-B Natriuret Pep 189 H Total Protein 7.2 Albumin 4.0 Globulin 3.2 Albumin/Globulin Ratio 1.3 Triglycerides Cholesterol LDL Cholesterol Direct VLDL Cholesterol HDL Cholesterol Cholesterol/HDL Ratio Chlamy pneumoniae PCR Adenovirus (PCR) B. pertussis DNA (PCR) Coronavirus OC43 (PCR) Coronavirus HKU1 (PCR) Coronavirus 229E (PCR) SARS-CoV-2 (PCR) Coronavirus NL63 (PCR) Human Metapneumovir PCR Influenza A (H1) PCR Influ A (H1N1/09) PCR Influenza A (H3) PCR Influenza Type A (PCR) Influenza Type B (PCR) M. pneumoniae (PCR) Parainfluenza 1 (PCR) Parainfluenza 2 (PCR) Parainfluenza 3 (PCR) Parainfluenza 4 (PCR) RSV (PCR) Entero/Rhino (PCR) DS: Diagnosis Discharge Diagnosis (1) Shortness of breath: Status: Acute Code(s): R06.02 - Shortness of breath (2) Edema, peripheral: Status: Acute Code(s): R60.0 - Localized edema (3) Elevated brain natriuretic peptide (BNP) level: Status: Acute Code(s): R79.89 - Other specified abnormal findings of blood chemistry (4) Congestive heart failure: Status: Acute Code(s): I50.9 - Heart failure, unspecified (5) Tobacco use disorder: Status: Acute Code(s): F17.200 - Nicotine dependence, unspecified, uncomplicated (6) COPD exacerbation: Status: Acute Code(s): J44.1 - Chronic obstructive pulmonary disease with (acute) exacerbation Meds Home Medications and Allergies Home Medications ?Medication ?Instructions ?Recorded ?Confirmed ?Type albuterol sulfate 90 mcg/actuation 2 puff inhalation Q6HP PRN 08/26/24 Rx aerosol inhaler (Ventolin HFA) Shortness Of Breath #0 grams doxycycline hyclate 100 mg capsule 100 mg PO BID #10 caps 08/26/24 Rx fluticasone fur. 100 mcg-umeclid 1 inh inhalation DAILY #0 ea 08/26/24 Rx 62.5 mcg-vilant 25 mcg inhalat.powder (Trelegy Ellipta) furosemide 40 mg tablet (Lasix) 40 mg PO DAILY #14 tabs 08/26/24 Rx prednisone 20 mg tablet 40 mg (2 x 20 mg) PO DAILY 5 days 08/26/24 Rx #10 tabs New Prescriptions to Start Prescriptions: doxycycline hyclate Reynaldo Patel furosemide [Lasix] Reynaldo Patel prednisone Reynaldo Patel Allergies Allergy/AdvReac Type Severity Reaction Status Date / Time Penicillins Allergy Unknown Paralyzed Verified 08/26/24 01:23 Discharge Plan Disposition Patient Disposition: Home, Self-Care Condition: Fair Follow up Plan Follow up with: Romel Mott DO [Staff Physician] - 1 week (Pleae call for your follow up appt. ) Prescriptions/Medication Reconciliation: New albuterol sulfate [Ventolin HFA] 90 mcg/actuation Hfa Aerosol Inhaler 2 puff inhalation Q6HP PRN (Reason: Shortness Of Breath) Qty: 0 0RF doxycycline hyclate 100 mg capsule 100 mg PO BID Qty: 10 0RF prednisone 20 mg tablet 40 mg PO DAILY 5 Days Qty: 10 0RF Trelegy Ellipta 100-62.5-25 mcg Blister With Device 1 inh inhalation DAILY Qty: 0 0RF furosemide [Lasix] 40 mg tablet 40 mg PO DAILY Qty: 14 0RF Problem Reconciliation Problems Reviewed?: Yes Patient Discharge Instructions ACTIVITY: Continue current activity DIET: continue same diet Patient Instructions: DI for Shortness of Breath, DI for Peripheral Edema -- Bilateral, How to Manage Shortness of Breath Print Language: Czech Providers Primary Care Provider: Provider,Referral Admit Provider: Reynaldo Patel Attending Provider: Reynaldo Patel
[2024-08-26] MEDS: FLUTICASONE/UMECLIDIN/VILANTER 100/62.5/25MCG INHALER 1 PUFF IH (12:14)
--- NOTE | 2024-08-27 10:22 | CARE MANAGER ---
Spoke with patient on the phone. Patient stated that he is doing very well. Patient stated that he was able to warp picker his new medicine. Patient stated that he is going to call and schedule his follow up appointment with his primary care provider. Patient stated that he has no concerns or questions. Rosamaria Layne
== END 2024-08-26 12:25 | disposition home or self-care (01) ==
LOC: ER 08-26 01:25 → 2ND 08-26 02:10
PROVIDERS: Emergency Medicine; Nurse Practitioner Family; Admitting Provider Internal Medicine Adolescent Medicine; Emergency Provider Emergency Medicine; Visit Provider Internal Medicine Adolescent Medicine
DX: J44.1 Chronic obstructive pulmonary disease with (acute) exacerbation (principal); I11.0 Hypertensive heart disease with heart failure; R60.0 Localized edema; J43.9 Emphysema, unspecified; R79.89 Other specified abnormal findings of blood chemistry; I50.9 Heart failure, unspecified; F17.210 Nicotine dependence, cigarettes, uncomplicated; J44.9 Chronic obstructive pulmonary disease, unspecified; Z91.198 Patient's noncompliance with other medical treatment and regimen for other reason
CPT/HCPCS: 36415; 71046; 80048; 80053; 80061; 82803; 83735; 83880; 84100; 84484; 85025; 85610; 87633; 93005; 99285; G0378; J1940; J7620